=== PATIENT | male | born 1945 | race Two or more races ===

== ENCOUNTER 2018-04-06 08:57 | Outpatient (CLI) | payer OTHER | END 2018-04-06 09:04 | disposition home or self-care (01) | LOC: SONOGRAMA 08:57 | DX: D21.6 Benign neoplasm of connective and other soft tissue of trunk, unspecified (principal) ==

== ENCOUNTER 2018-04-26 06:00 | Day surgery (SDC) | payer OTHER ==
[~2018-04-26 06:00] MED LIST: ATACAND HCT 161 EACH PO; SIMBRINZA 1%-0.28 ML OP; ZOCOR20 MG PO
== END 2018-04-26 13:40 | disposition home or self-care (01) ==
LOC: EDBD 06:00 → CIR.AMB 06:00
DX: D17.1 Benign lipomatous neoplasm of skin and subcutaneous tissue of trunk (principal)

== ENCOUNTER 2024-01-25 08:42 | Outpatient (CLI) | payer OTHER | END 2024-01-25 08:45 | disposition home or self-care (01) | LOC: NUCLEAR 08:42 | DX: I65.21 Occlusion and stenosis of right carotid artery (principal) ==